=== PATIENT | female | born 1990 | race Asian ===

== ENCOUNTER 2016-11-06 16:16 | Emergency (ER) | payer OTHER ==
--- NOTE | 2016-11-06 16:33 | PDOC ---
Rapid Medical Evaluation Chief Complaint: Pain, Acute Time Seen by Provider: 11/06/16 16:28 Medical Evaluation: Allergies Allergy/AdvReac Type Severity Reaction Status Date / Time No Known Allergies Allergy Verified 11/06/16 16:28 Vital Signs Temp Pulse Resp BP Pulse Ox 97.3 F L 60 19 119/44 100 11/06/16 16:28 11/06/16 16:28 11/06/16 16:28 11/06/16 16:28 11/06/16 16:28 11/06/16 16:32 I have performed a brief in-person evaluation of this patient. The patient presents with a chief complaint of: vaginal bleeding since this AM, suprapubic pain Pertinent physical exam findings:uncomfortable young female, non-peritoneal abd I have ordered the following:cbc, hcg, type and screen, The patient will proceed to the ED for further evaluation.
[2016-11-06 16:45] VITALS: BP 119/44; PULSE 60; TEMP 97.3; BMI 17.3
[2016-11-06 17:34] LABS: BASOPHIL 0.6 % (0-2.0); EOSINOPHIL 0.9 % (0-4.5); MCH 31.1 pg (25.7-33.7); MCHC 34.5 g/dl (32.0-36.0); MEAN CELL VOLUME 90.2 fl (80-96); MEAN PLT VOLUME 9.4 fl (7.5-11.1); NEUTROPHILS 69.2 % (42.8-82.8); PLATELET COUNT 162 K/MM3 (134-434); RDW 12.8 % (11.6-15.6); WHITE BLOOD COUNT 6.4 K/mm3 (4.0-10.0)
[2016-11-06] MEDS ORDERED: ACETAMINOPHEN 325 MG TABLET (FP) PO ONE (17:37)
--- NOTE | 2016-11-06 17:37 | PDOC ---
History of Present Illness - General History Source: Patient, Old Records Exam Limitations: No Limitations - History of Present Illness Initial Comments: 11/06/16 17:39 26-year-old female with no past medical history of presents with suprapubic cramping and vaginal bleeding today. Patient reports that today's her first day of her menstrual period. She reported that 2 years ago she had a case where she had severely lower abdominal cramping with her appears that resolved on its own. Since then, patient has been regular with her periods. Today, she reports some small amount of vaginal bleeding consistent with her menstrual cycling. Reported similar abdominal pain but severe in onset. Patient reported the pain was so severe she came to the ER. However, without intervention, the pain has improved. She denies being . She denies any pain at this time. Denies history of ovarian cysts, fibroids. <Chris Lawrence - Last Filed: 11/06/16 19:55> - General History Source: Patient Exam Limitations: No Limitations <Bro Jerez - Last Filed: 11/06/16 20:21> - General Chief Complaint: Pain, Acute Stated Complaint: ABD PAIN,VAG SPOTTING Time Seen by Provider: 11/06/16 16:28 Past History <Chris Lawrence - Last Filed: 11/06/16 19:55> - Past Medical History Other medical history: DENIES. - Psycho/Social/Smoking Cessation Hx Anxiety: No Suicidal Ideation: No Smoking History: Never smoked Hx Alcohol Use: No Substance Use Type: None <Bro Jerez - Last Filed: 11/06/16 20:21> - Past Medical History Allergies/Adverse Reactions: Allergies Allergy/AdvReac Type Severity Reaction Status Date / Time No Known Allergies Allergy Verified 11/06/16 16:28 Home Medications: Ambulatory Orders NK [No Known Home Medication] 11/06/16 Review of Systems - Review of Systems Able to Perform ROS?: Yes Comments:: 11/06/16 17:39 GENERAL/CONSTITUTIONAL: No fever or chills. No weakness. HEAD, EYES, EARS, NOSE AND THROAT: No change in vision. No ear pain or discharge. No sore throat. CARDIOVASCULAR: No chest pain or shortness of breath. RESPIRATORY: No cough, wheezing, or hemoptysis. GASTROINTESTINAL: No nausea, vomiting, diarrhea or constipation. GENITOURINARY: No dysuria, frequency, or change in urination. RESOURCE ENGINEER: (+) Suprapubic cramping, vaginal bleeding. MUSCULOSKELETAL: No joint or muscle swelling or pain. No neck or back pain. SKIN: No rash NEUROLOGIC: No headache, vertigo, loss of consciousness, or change in strength/ sensation. ENDOCRINE: No increased thirst. No abnormal weight change. HEMATOLOGIC/LYMPHATIC: No anemia, easy bleeding, or history of blood clots. ALLERGIC/IMMUNOLOGIC: No hives or skin allergy. <Chris Lawrence - Last Filed: 11/06/16 19:55> *Physical Exam - Vital Signs Last Vital Signs Temp Pulse Resp BP Pulse Ox 97.3 F L 60 19 119/44 100 11/06/16 16:28 11/06/16 16:28 11/06/16 16:28 11/06/16 16:28 11/06/16 16:28 - Physical Exam Comments: 11/06/16 17:39 GENERAL: Awake, alert, and fully oriented, in no acute distress HEAD: No signs of trauma EYES: PERRLA, EOMI, sclera anicteric, conjunctiva clear ENT: Auricles normal inspection, hearing grossly normal, nares patent, oropharynx clear without exudates. Moist mucosa NECK: Normal ROM, supple, no lymphadenopathy, JVD, or masses LUNGS: Breath sounds equal, clear to auscultation bilaterally. No wheezes, and no crackles HEART: Regular rate and rhythm, normal S1 and S2, no murmurs, rubs or gallops ABDOMEN: Soft, nontender, normoactive bowel sounds. No guarding, no rebound. No masses EXTREMITIES: Normal range of motion, no edema. No clubbing or cyanosis. No cords, erythema, or tenderness NEUROLOGICAL: Cranial nerves II through XII grossly intact. Normal speech, normal gait SKIN: Warm, Dry, normal turgor, no rashes or lesions noted. <Chris Lawrence - Last Filed: 11/06/16 19:55> - Vital Signs Last Vital Signs Temp Pulse Resp BP Pulse Ox 97.3 F L 60 19 119/44 100 11/06/16 16:28 11/06/16 16:28 11/06/16 16:28 11/06/16 16:28 11/06/16 16:28 <Bro Jerez - Last Filed: 11/06/16 20:21> ED Treatment Course - LABORATORY CBC & Chemistry Diagram: 11/06/16 17:20 11/06/16 17:20 - ADDITIONAL ORDERS Additional order review: 11/06/16 17:20 RBC 4.07 MCV 90.2 MCHC 34.5 RDW 12.8 MPV 9.4 Neutrophils % 69.2 Lymphocytes % 25.1 Monocytes % 4.2 Eosinophils % 0.9 Basophils % 0.6 - RADIOLOGY Radiology Studies Ordered: 11/06/16 19:55 US/TRANSVAGINAL ULTRASOUND US Rule out ovarian cysts. Lower abdominal pain Discussion: Pelvis ultrasound, transvesical and transvaginal 2. Transvesical images were submitted which were nondiagnostic. Urinary bladder is empty The uterus measures 7.2 x 3.7 cm. Endometrial stripe measures 5 mm in thickness which is within normal limits. The right ovary measures 2.7 x 1.5 cm with a few small cysts/follicles and normal vascular flow. Left ovary measures 2.4 x 1.5 cm with a few small cysts/follicles and normal vascular flow There is a small amount of free fluid in the cul-de-sac Impression: Small amount of free fluid in the cul-de-sac, likely physiologic. The uterus and both ovaries appear unremarkable. Reported By: Dann Alvarado MD <Chris Lawrence - Last Filed: 11/06/16 19:55> - LABORATORY CBC & Chemistry Diagram: 11/06/16 17:20 11/06/16 17:20 <Bro Jerez - Last Filed: 11/06/16 20:21> Medical Decision Making - Medical Decision Making 11/06/16 17:26 A portion of this note was documented by scribe services under my direction. I have reviewed the details of the note, within reason, and agree with the documentation with the following case summary and management plan written by me. Patient treated in the ED. Nursing notes are reviewed and incorporated into the medical decision-making. Vital signs reviewed. Peripheral IV access obtained by the nurse, laboratory studies are drawn and sent, reviewed and interpreted by myself. Vital Signs Temp Pulse Resp BP Pulse Ox 97.3 F L 60 19 119/44 100 11/06/16 16:28 11/06/16 16:28 11/06/16 16:28 11/06/16 16:28 11/06/16 16:28 26-year-old female with no past medical history of presents with suprapubic cramping and vaginal bleeding today. Patient reports that today's her first day of her menstrual period. She reported that 2 years ago she had a case where she had severely lower abdominal cramping with her appears that resolved on its own. Since then, patient has been regular with her periods. Today, she reports some small amount of vaginal bleeding consistent with her menstrual cycling. Reported similar abdominal cramping but now more severe in onset. Patient reported the pain was so severe she came to the ER. However, without intervention, the pain has improved. She denies being . She denies any pain at this time. Denies history of ovarian cysts, fibroids. The patient has no pain at this time. This may potentially been her uterine cramps. We'll send labs including a test and obtain a transvaginal ultrasound to look for cysts, fibroids. We'll observe the patient. 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 11/06/16 20:06 Ultrasound reviewed. Small amount of free fluid in the cul-de-sac, likely physiologic. The uterus and both ovaries appear unremarkable. CBC, BMP 11/06/16 17:20 11/06/16 17:20 CMP Sodium 141 mmol/L (136-145) 11/06/16 17:20 Potassium 3.8 mmol/L (3.5-5.1) 11/06/16 17:20 Chloride 107 mmol/L (98-107) 11/06/16 17:20 Carbon Dioxide 27 mmol/L (21-32) 11/06/16 17:20 Anion Gap 7 (8-16) L 11/06/16 17:20 BUN 12 mg/dL (7-18) 11/06/16 17:20 Creatinine 0.5 mg/dL (0.55-1.02) L 11/06/16 17:20 Creat Clearance w eGFR > 60 (>60) 11/06/16 17:20 Random Glucose 96 mg/dL (74-106) 11/06/16 17:20 Calcium 8.3 mg/dL (8.5-10.1) L 11/06/16 17:20 Total Bilirubin 0.8 mg/dL (0.2-1.0) D 11/06/16 17:20 AST 6 U/L (15-37) L 11/06/16 17:20 ALT 12 U/L (12-78) 11/06/16 17:20 Alkaline Phosphatase 51 U/L (45-117) 11/06/16 17:20 Total Protein 6.9 g/dl (6.4-8.2) 11/06/16 17:20 Albumin 4.2 g/dl (3.4-5.0) 11/06/16 17:20 Beta HCG, Quant < 1.0 mIU/ml 11/06/16 17:20 Urine Test Results Urine Color Yellow 11/06/16 17:50 Urine Appearance Clear 11/06/16 17:50 Urine pH 6.0 (5.0-8.0) 11/06/16 17:50 Ur Specific [place] 1.024 (1.001-1.035) 11/06/16 17:50 Urine Protein 1+ (NEGATIVE) H 11/06/16 17:50 Urine Glucose (UA) Negative (NEGATIVE) 11/06/16 17:50 Urine Ketones Negative (NEGATIVE) 11/06/16 17:50 Urine Blood 3+ (NEGATIVE) H 11/06/16 17:50 Urine Nitrite Negative (NEGATIVE) 11/06/16 17:50 Urine Bilirubin Negative (NEGATIVE) 11/06/16 17:50 Ur Leukocyte Esterase Negative (NEGATIVE) 11/06/16 17:50 Urine RBC 102 /hpf (0-3) 11/06/16 17:50 Urine WBC 23 /hpf (3-5) 11/06/16 17:50 Ur Epithelial Cells Rare /hpf (FEW) 11/06/16 17:50 Urine Mucus Rare 11/06/16 17:50 Labs and UA reviewed. (23 WBC in UA likely 2/2 bleeding. Negative leuk est and negative nitrate. Will not treat for UTI.) Again, patient has no pain. It may potentially been her cramps from her menstrual cycle. 11/06/16 20:20 We had attempted to look for the patient, but she appeared to have eloped. <Bro Jerez - Last Filed: 11/06/16 20:21> *DC/Admit/Observation/Transfer - Attestations Scribe Attestion: 11/06/16 17:40 Documentation prepared by Chris Lawrence, acting as medical office rep for Bro Jerez MD. <Chris Lawrence - Last Filed: 11/06/16 19:55> - Discharge Dispostion Admit: No <Bro Jerez - Last Filed: 11/06/16 20:21> Diagnosis at time of Disposition: Menstrual cramp - Discharge Dispostion Disposition: ELOPED Condition at time of disposition: Stable
[2016-11-06] MEDS ORDERED: ACETAMINOPHEN 325 MG TABLET (FP) ONE (17:40)
[2016-11-06 18:10] LABS: ALBUMIN 4.2 g/dl (3.4-5.0); ANION GAP 7 (8-16); BILIRUBIN,TOTAL 0.8 mg/dL (0.2-1.0); CALCIUM 8.3 mg/dL (8.5-10.1); CO2 27 mmol/L (21-32); CREATININE 0.5 mg/dL (0.55-1.02); GLUCOSE,RANDOM 96 mg/dL (74-106); SGOT/AST 6 U/L (15-37); SGPT/ALT 12 U/L (12-78); TOT PROT 6.9 g/dl (6.4-8.2)
[2016-11-06 18:13] LABS: ALK PHOS 51 U/L (45-117)
[2016-11-06 18:22] LABS: URINE APPEARANCE CLEAR; URINE BILIRUBIN NEGATIVE (NEGATIVE); URINE COLOR YELLOW; URINE GLUCOSE (UA) NEGATIVE (NEGATIVE); URINE KETONE NEGATIVE (NEGATIVE); URINE LEUK ESTERASE NEGATIVE (NEGATIVE); URINE NITRITE NEGATIVE (NEGATIVE); URINE UROBILINOGEN NEGATIVE E.U./dl (0.2-1.0)
[2016-11-06 18:27] LABS: URINE BLOOD 3+ (NEGATIVE); URINE PROTEIN 1+ (NEGATIVE)
[2016-11-06 19:05] LABS: URINE MUCUS RARE; URINE RBC 102 /hpf (0-3); URINE WBC 23 /hpf (3-5)
== END 2016-11-06 20:23 | disposition left against medical advice (07) ==
LOC: JER 16:16
DX: N94.6 Dysmenorrhea, unspecified (principal)
CPT/HCPCS: 36415; 76830-TC; 80053; 81003; 81015; 84702; 84703; 85025; 99283-25